=== PATIENT | female | born 1965 | race Caucasian/White ===

== ENCOUNTER 2017-01-12 05:56 | Day surgery (SDC) | payer OTHER ==
[2017-01-05 09:45] VITALS: BMI 31.8
[2017-01-12] MEDS ORDERED: PROPOFOL 20 ML ONE ×2 (07:21)
[2017-01-12] MEDS ORDERED: MIDAZOLAM HCL 2 MG/2 ML SINGLE DOSE VIAL ONE (07:21)
[2017-01-12] MEDS ORDERED: ONDANSETRON 4 MG/2 ML VIAL ONE (08:07)
[2017-01-12] MEDS ORDERED: KETOROLAC TROMETHAMINE 30 MG/1 ML VIAL ONE (08:07)
[2017-01-12] MEDS ORDERED: DEXAMETHASONE SOD PHOSPHATE 4 MG/1 ML VIAL ONE (08:07)
[2017-01-12] MEDS ORDERED: LIDOCAINE HCL 2% (50ML VIAL) INF ONE (08:07)
[2017-01-12 08:57] VITALS: TEMP 98.4
[2017-01-12] MEDS ORDERED: ACETAMINOPHEN 325 MG TABLET (FP) PO PRN (09:25)
[2017-01-12] MEDS ORDERED: LACTATED RINGERS SOLUTION 1,000 ML IV SCH (09:30)
[2017-01-12 09:47] VITALS: BP 140/70; PULSE 54
[2017-01-12] MEDS ORDERED: ONDANSETRON 4 MG/2 ML VIAL IVPUSH PRN (10:03)
[2017-01-12] MEDS ORDERED: oxyCODONE HCL 5 MG TABLET PO PRN (10:04)
--- NOTE | 2017-01-13 08:34 | OP ---
DATE OF OPERATION: 01/12/2017 SURGEON: Ramiro Esqueda MD PREOPERATIVE DIAGNOSIS: Left ring trigger-finger. POSTOPERATIVE DIAGNOSIS: Left ring trigger-finger. OPERATIVE PROCEDURE: Left ring trigger-finger release. ANESTHESIA: Local with sedation. COMPLICATIONS: None. ESTIMATED BLOOD LOSS: Minimal. INDICATIONS FOR PROCEDURE: The patient is a 51-year-old female with the above finding, indicated for operative treatment. The risks, benefits, and alternatives were discussed with the patient at length. Proper informed consent was obtained. DESCRIPTION OF PROCEDURE: After proper identification of the patient and the correct operative site, the patient was brought to the operating room and placed supine on the operating room table. All bony prominences were well padded. Left upper extremity was prepped and draped in the usual sterile fashion. A well-padded tourniquet was placed with a sterile prep. Esmarch bandage used to exsanguinate the left upper extremity. A tourniquet was inflated to 250 mmHg. A longitudinal incision was made over the A1 miguel angel to the ring finger. Incision was taken sharply through the skin with blunt and sharp dissection through subcutaneous tissues. A1 miguel angel was identified and divided longitudinal. Patient was then asked to flex and extend her finger, and no further triggering was noted. Wound was irrigated with saline and repaired with a 5-0 nylon suture. Sterile dressings were applied. Patient was brought to the recovery room in stable condition. She tolerated the procedure well. RAMIRO ESQUEDA M.D. [id number]
== END 2017-01-12 09:24 | disposition home or self-care (01) ==
LOC: FASU 05:56
PROVIDERS: ATTEND Orthopaedic Surgery Hand Surgery
PROC: 0LN80ZZ Release Left Hand Tendon, Open Approach (ICD-10-PCS; principal; 2017-01-12 08:15)
DX: M65.342 Trigger finger, left ring finger (principal)